=== PATIENT | male | born 1970 | race Caucasian/White ===

== ENCOUNTER 2017-01-20 09:40 | Emergency (ER) | payer BC ==
[~2017-01-20] VITALS: Ht 157.5 cm; Wt 98.0 kg
[2017-01-20 09:42] VITALS: Ht 157.5 cm; Wt 98.0 kg
[2017-01-20] MEDS ORDERED: IBUPROFEN 800 MG TAB PO ONE (10:30)
--- NOTE | 2017-01-20 10:40 | RADRPT ---
PROCEDURE: XR Left Ankle CLINICAL INDICATION: Injury, possible Achilles tendon rupture TECHNIQUE: Standard 3 view radiographs were submitted. COMPARISON: None FINDINGS: Osseous structures: Well mineralized and intact with no fracture or destructive process identified. Joint spaces: Well maintained with no significant erosions or spurring evident. Soft tissues: Appear unremarkable. IMPRESSION: Unremarkable left ankle. Physician Jase Date Time Electronically viewed and signed by Rosanne Ridley Physician on 01/20/2017 10:40 RH/
--- NOTE | 2017-01-20 10:41 | RADRPT ---
PROCEDURE: XR Left Foot CLINICAL INDICATION: Pain, possible Achilles tendon rupture TECHNIQUE: AP, oblique, and lateral radiographs were submitted. COMPARISON: None FINDINGS: Osseous structures: appear well mineralized and intact with no fracture or destructive process iden tified. Joint spaces: are well maintained, with no significant spurring, erosion or joint effusion evident. Soft tissues: appear unremarkable. IMPRESSION: Unremarkable left foot. Physician Jase Date Time Electronically viewed and signed by Physician Jase on 01/20/2017 10:41 /
[2017-01-20] MEDS ORDERED: IBUP-1542 PO (10:49)
--- NOTE | 2017-01-20 11:23 | ERD ---
ER Documentation Chief Complaint Date/Time DATE: 01/20/17 TIME: 10:21 Chief Complaint left foot pain/injury HPI Patient is a 46-year-old male here with daughter who presents to the ED with left heel pain. Patient was playing badminton 2 days ago and jumped up and landed on the ground and states that he "heard a pop." Dates that he was unable to walk after he landed. He has been using crutches. He states that he has pain to the posterior aspect of his ankle near his Achilles. He is unable to plantar flex his foot. He denies radiation of pain. Denies hitting his head or passing out or losing consciousness. No other complaints. ROS All systems reviewed and are negative except as per history of present illness. Medications Home Meds Active Scripts Ibuprofen* (Motrin*) 600 Mg Tab, 600 MG PO Q6, #30 TAB Prov:CHELA ZHENG PA-C 01/20/17 PMhx/Soc Medical and Surgical Hx: pt denies Medical Hx, pt denies Surgical Hx Hx Alcohol Use: No Hx Substance Use: No Hx Tobacco Use: No Smoking Status: Never smoker Physical Exam Vitals Vital Signs Date Time Temp Pulse Resp B/P Pulse Ox O2 Delivery O2 Flow Rate FiO2 01/20/17 09:42 98.1 99 18 171/88 99 Physical Exam GENERAL: Well-developed, well-nourished male. Appears in no acute distress. HEAD: Normocephalic, atraumatic. EYES: Pupils are equally reactive bilaterally. EOMs grossly intact. No conjunctival erythema. ENT: Moist mucous membranes. No uvula deviation. No kissing tonsils. No exudates. NECK: Supple. No lymphadenopathy or thyromegaly. No meningismus. negative kernig. negative brudinski. LUNG: Clear to auscultation bilaterally. No rhonchi, wheezing, rales or coarse breath sounds. HEART: Regular rate and rhythm. No murmurs, rubs or gallops. Extremities: Equal pulses bilaterally. No peripheral clubbing, cyanosis or edema. No unilateral leg swelling. ecchymosis and tenderness to achiles tendon. deformity felt. positive bower test. no pain at base of 5th metatarsal. no pain above ankle joint. NEUROLOGIC: Alert and oriented. . Normal speech. unSteady gait. SKIN: Normal color. Warm and dry. No rashes or lesions. Capillary refill < 2 seconds Results 24 hrs Current Medications Medications (Trade) Dose Ordered Sig/Leonid Route PRN Reason Start Time Stop Time Status Last Admin Dose Admin Ibuprofen (Motrin) 800 mg ONCE ONCE PO 01/20/17 10:30 01/20/17 10:31 DC 01/20/17 10:16 Procedures/MDM ER COURSE: I kept the patient and/or family informed of laboratory and diagnostic imaging results throughout the emergency room course. MEDICAL DECISION MAKING: This is a 46 year old male who presents with left posterior ankle pain and swelling x 2 days. Vital signs were reviewed. Patient is afebrile. Patient is not hypoxic. Patient likely has achilles tear vs rupture. I consulted with my supervising physician Dr. Fay who agrees with my medical decision making and discharge plans. Xrays as ready by radiologist is unremarkable for fracture or dislocation. Patient will be placed in a short leg posterior leg splint in slight plantarflex. Patient was neurovascular intact post placement. Low suspicion for dislocation, fracture, septic joint, compartment syndrome, osteomyelitis, cellulitis, avascular necrosis, neurological injury, vascular injury, tendon laceration. DISCHARGE: At this time, patient is stable for discharge and outpatient management with no new complaints during the ER course. Patient was sent home with person, splint, crutches and to follow-up with orthopedics tomorrow. Patient will be discharged home with instructions to recheck for new or worsening symptoms such as fever, nausea, weakness, LOC and to follow up with primary care in the next 1-2 days. Patient was advised to return to the ER for any new or worsening symptoms. Plan was discussed and patient and/or family understands and agrees. Home instructions were given. Departure Diagnosis: Primary Impression: Achilles tendon pain Condition: Stable CHELA ZHENG PA-C Jan 20, 2017 10:28
== END 2017-01-20 11:05 | disposition home or self-care (01) ==
LOC: FTE 09:40
DX: M79.672 Pain in left foot (principal)
CPT/HCPCS: 73610

== ENCOUNTER 2017-01-20 12:55 | Inpatient (IN) | END 2017-01-22 11:49 | disposition home or self-care (01) | DRG 502 | DX: S86.012A Strain of left Achilles tendon, initial encounter (principal); E86.0 Dehydration; Y93.73 Activity, racquet and hand sports; Y92.838 Other recreation area as the place of occurrence of the external cause; Y99.8 Other external cause status ==

== ENCOUNTER → 2018-01-21 | Outpatient (CLI) | END | disposition home or self-care (01) ==